=== PATIENT | male | born 1995 ===

== ENCOUNTER 2018-04-15 11:08 | Emergency (ER) | payer BC, OTHER ==
[2018-04-15 11:13] VITALS: BMI 38.9
--- NOTE | 2018-04-15 12:05 | ED PDOC ---
HPI: Back Time Seen by Provider: 04/15/18 11:17 Chief Complaint (Nursing): Back Pain Chief Complaint (Provider): low back pain History Per: Patient History/Exam Limitations: no limitations Onset/Duration Of Symptoms: Hrs (4) Current Symptoms Are (Timing): Still Present Exacerbating Factor(s): Turning, Movement, Sitting, Standing Additional Complaint(s): 22 y/o male brought in by EMS for evaluation of low back pain x 4 hours. Patient states he was chasing after his cat and jumped over the gate to the backyard, approximately 6 feet and landed on his feet and felt immediate pain to lower back. Pain now intermittent, sharp. Denies numbness/weakness lower extremities, bowel/bladder incontinence. No medications taken for relief thus far Past Medical History Reviewed: Historical Data, Nursing Documentation, Vital Signs Vital Signs: Last Vital Signs Temp 97.7 F 04/15/18 11:13 Pulse 85 04/15/18 11:13 Resp 20 04/15/18 11:13 BP 130/83 04/15/18 11:13 Pulse Ox 99 04/15/18 11:13 - Medical History PMH: No Chronic Diseases - Surgical History Surgical History: No Surg Hx - Family History Family History: States: No Known Family Hx - Living Arrangements Living Arrangements: With Family - Home Medications Home Medications: Ambulatory Orders Medication Instructions Recorded Cyclobenzaprine [Cyclobenzaprine 10 mg PO BID PRN #14 tab 04/15/18 HCl] Lidocaine 5% [Lidoderm] 1 patch TOP DAILY PRN #7 patch 04/15/18 Naproxen [Naprosyn] 500 mg PO Q12 PRN #20 tablet 04/15/18 - Allergies Allergies/Adverse Reactions: Allergies Allergy/AdvReac Type Severity Reaction Status Date / Time No Known Allergies Allergy Verified 02/15/17 20:19 Review of Systems ROS Statement: Except As Marked, All Systems Reviewed And Found Negative Musculoskeletal: Positive for: Back Pain Physical Exam - Reviewed Nursing Documentation Reviewed: Yes Vital Signs Reviewed: Yes - Physical Exam Appears: Positive for: Well, Non-toxic, No Acute Distress Head Exam: Positive for: ATRAUMATIC, NORMAL INSPECTION, NORMOCEPHALIC Cardiovascular/Chest: Positive for: Regular Rate, Rhythm Respiratory: Positive for: Normal Breath Sounds Back: Positive for: Vertebral Tenderness (diffuse lspine; no bony deformity), Decreased ROM (secondary to pain in lower back), Muscle Spasm (bilateral lspine paravertebral tenderness) Extremity: Positive for: Normal ROM - ECG O2 Sat by Pulse Oximetry: 99 - Other Rad lspine xray X-Ray: Viewed By Me, Read By Radiologist X-Ray Interpretation: no acute findings - Progress ED Course And Treament: -Toradol IM -Flexeril PO -lspine xray On re-eval, patient states pain improved Patient educated on findings, discharged with rx Naproxen, Flexeril, Lidoderm Advised warm compresses Follow up PMD within 2-3 days Return precautions given Disposition - Clinical Impression Clinical Impression: Low back pain - Patient ED Disposition Is Patient to be Admitted: No Counseled Patient/Family Regarding: Studies Performed, Diagnosis, Need For Followup, Rx Given - Disposition Disposition: Routine/Home Disposition Time: 13:56 Condition: IMPROVED Prescriptions: Cyclobenzaprine [Cyclobenzaprine HCl] 10 mg PO BID PRN #14 tab PRN Reason: Muscle Spasm Lidocaine 5% [Lidoderm] 1 patch TOP DAILY PRN #7 patch PRN Reason: pain Naproxen [Naprosyn] 500 mg PO Q12 PRN #20 tablet PRN Reason: Pain, Moderate (4-7) Instructions: Low Back Pain in Adults Forms: [facility] (German)
--- NOTE | 2018-04-15 13:09 | RAD ---
Date of service: 04/15/2018 PROCEDURE: Radiographs of the Lumbar Spine. HISTORY: injury; low back pain COMPARISON: No prior. FINDINGS: BONES: Normal alignment. No listhesis. No fracture. DISC SPACES: Unremarkable. OTHER FINDINGS: None. IMPRESSION: Unremarkable radiographs of the lumbar spine.
[2018-04-15 14:12] VITALS: BP 131/86; PULSE 78; RESP 16; TEMP 98; O2SAT 97
== END 2018-04-15 14:25 | disposition home or self-care (01) ==
LOC: H.ER 11:08
DX: M54.5 Low back pain (principal)
CPT/HCPCS: 72100; 96372; 99282; J1885